=== PATIENT | male | born 1995 | race Caucasian/White ===

== ENCOUNTER 2017-08-12 15:43 | Emergency (ER) | payer BC, OTHER ==
[~2017-08-12] VITALS: Ht 170.2 cm; Wt 77.5 kg
[2017-08-12 15:50] VITALS: TEMP 37.4; O2SAT 94; Ht 170.2 cm; Wt 77.5 kg
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
[2017-08-12] MEDS ORDERED: [UNRECOGNIZED DRUG - CODE] PO (16:59)
[2017-08-12] MEDS ORDERED: RMCI IV. (16:59)
[2017-08-12 17:12] LABS: BUN/CREATININE RATIO 10.6 (10-20); CALCIUM 8.9 mg/dl (8.5-10.1); CREATININE 1.2 mg/dl (0.60-1.40)
[2017-08-12 23:40] VITALS: BP 130/69; PULSE 92; O2SAT 99
== END 2017-08-12 23:41 | disposition home or self-care (01) ==
LOC: EDBD 15:43 → C.EDB 15:44
DX: F10.129 Alcohol abuse with intoxication, unspecified (principal); Y90.8 Blood alcohol level of 240 mg/100 ml or more